=== PATIENT | female | born 1945 | race Caucasian/White ===

== ENCOUNTER 2023-03-27 15:51 | Outpatient (CLI) | payer MEDICARE, SELFPAY | END 2023-03-27 15:52 | disposition home or self-care (01) | LOC: SPT 03-28 10:52 | PROVIDERS: Visit Provider Podiatrist Foot & Ankle Surgery | DX: S99.922A Unspecified injury of left foot, initial encounter (principal); S96.922A Laceration of unspecified muscle and tendon at ankle and foot level, left foot, initial encounter; X58.XXXA Exposure to other specified factors, initial encounter | CPT/HCPCS: 97760; 99205; L4361 ==

== ENCOUNTER → 2023-03-27 15:54 | Outpatient (BNVA) | payer MEDICARE, SELFPAY | PROVIDERS: Visit Provider Podiatrist Foot & Ankle Surgery | DX: S96.122A Laceration of muscle and tendon of long extensor muscle of toe at ankle and foot level, left foot, initial encounter; S96.812A Strain of other specified muscles and tendons at ankle and foot level, left foot, initial encounter; W19.XXXA Unspecified fall, initial encounter | CPT/HCPCS: 73630; 97760; 99205; L4361 ==

== ENCOUNTER 2023-04-02 05:40 | Day surgery (SDC) | payer MEDICARE, SELFPAY ==
[2023-03-30 14:12] VITALS: BMI 26.4
[2023-04-02] VITALS (7 sets, daily range): BP systolic 117–168; BP diastolic 59–91; PULSE 62–74; RESP 12–18; TEMP 36.1–36.6; O2SAT 96–99
--- NOTE | 2023-04-02 06:09 | W.PM.OPSUD ---
Surgery/Procedure H&P Update DATE OF PROCEDURE: April 02, 2023 DATE H&P PERFORMED: 03/27/23 CHANGES TO PREVIOUS DOCUMENTATION: None PREOP DIAGNOSIS: Laceration and tendon rupture left foot PLANNED PROCEDURE: Operation Date: 04/02/23 07:00 Proposed Procedures p ?Secondary closure of wound with extensor tendon repair left foot 89550, [id number], S99.922A,S96.922A(Left) - Royer Whitman DPM s extensor tendon repair left foot(Left) - Royer Whitman DPM
[2023-04-02] MEDS: sodium chloride 0.9% 1,000 ML 30 ML IV (06:22)
[2023-04-02] MEDS: clindamycin 600 MG/50 ML PREMIX 100 MG IV (06:59)
--- NOTE | 2023-04-02 07:51 | PC.NURSE ---
Pt arrived to PACU, awake, A&Ox3, pt denies any pain or nausea at this time. Dressing and post op shoe to left foot C/D/I, left toes p/w/d, cap refill < 3 seconds, able to wiggle toes. FOB elevated.
--- NOTE | 2023-04-02 08:13 | PM.OP ---
Operative Report Date of procedure: April 02, 2023 Pre-op diagnosis: Full-thickness laceration left dorsal foot down to bone measuring 5.5 cm Left second extensor digitorum longus tendon rupture Left third extensor digitorum longus tendon rupture Post-op diagnosis: Same Procedure done: Secondary closure of left dorsal foot wound. CPT code 47807 Left second toe extensor digitorum longus tendon repair. CPT code 42986 Left third toe extensor digitorum longus tendon repair. CPT code 36000 Implants: 4-0 FiberWire 4-0 Vicryl 4-0 nylon Pathology: None Surgeon: Royer Whitman D.P.M. [employer]inder[employer] Assembly Worker: Bri Estimated blood loss: 5 28 IV fluids: 0 Urine output: 0 Complications: None Findings: Complete rupture of left second and third extensor digitorum longus tendons. Complicated full-thickness laceration down to bone left dorsal foot Brief History: Patient examined and evaluated, findings and treatment options discussed with patient at length.? Patient wishing to proceed with direct repair of extensor tendons of left foot that are involved with her injury as well as laceration repair.? I reviewed at length with the patient, the risks, potential complications, benefits, alternatives, expectations, and typical outcomes associated with the surgery. The risks and potential complications were explained in detail, including but not limited to infection, wound dehiscence or soft tissue complications, bleeding and hematoma, chronic edema, neuritis or nerve damage producing numbness or chronic pain, CRPS, failure to relieve pain or worsening pain, thick / painful / unsightly scar, limited motion / stiffness, malposition, delayed union, malunion, or nonunion, fracture, reaction to implants, anesthetic complications, venous thromboembolism, and deformity recurrence.? I discussed the notion of no regrets with the patient as it pertains to complications and outcomes. The patient seemed to understand the nature of the proposed care and required convalescence. They asked appropriate questions, answered to their satisfaction. They are aware no guarantees can be made as to a satisfactory outcome and they understand there may be other possible unforeseen complications or outcomes not listed here that will be treated accordingly if they arise. There were no written or implied guarantees given to the patient. They gave informed consent to proceed.? Procedure: Under mild sedation the patient was brought to the operating room and remained on the gurney in supine position. A timeout was performed. Anesthesia was then administered by the anesthesia service. Local anesthesia was injected by myself consisting of 10 cc of Exparel and 10 cc of 0.5% Marcaine plain in a V-block proximal to the full-thickness laceration left dorsal foot. Well-padded pneumatic tourniquet was applied to the left ankle. The left foot and ankle were exanguinated with an Esmarch bandage and the tourniquet inflated to 250 mmHg. The left second and third toes were drooping downward this was appreciated preoperatively. Attention was directed to the dorsal aspect of the left foot where a full-thickness complex laceration was identified, measured 5.5 cm in a oblique orientation across the dorsum of the left midfoot and forefoot. Laceration had been previously approximated at the emergency department at [facility]. Incomplete healing and partial dehiscence was appreciated without surrounding erythema or purulent drainage. #15 blade was utilized to incise the laceration and blunt dissection carried down to the base of the laceration which was noted to be the dorsal aspect of the second metatarsal. The laceration was irrigated with copious amounts of Staticin solution. Both proximal and distal dissection bluntly was performed to identify the extensor digitorum longus tendon to the second toe both ends were identified, complete rupture was appreciated intraoperatively. There was gapping also appreciated, dorsiflexing the left second toe and dorsiflexing the ankle was able to reapproximate the tendon for a robust repair. The tendon was reapproximated into 2 and utilizing a modified [facility] stitch with 4-0 FiberWire with excellent apposition and strength appreciated. Blunt and sharp dissection was then performed to identify the completely ruptured third toe extensor digitorum longus tendon. The third toe was dorsiflexed and the ankle was dorsiflexed to approximate the tendons for easier identification. This was confirmed at the third toe extensor digitorum longus tendon was properly identified pulling on standing and watching the left third toe dorsiflex. The tendon was repaired end-to-end utilizing 4-0 FiberWire with a modified [facility] suture technique. Excellent robust repair was appreciated. The repair at the second and third extensor digitorum longus tendons resulted in a anatomic reduction of the left second and third toes with resting neutral position appreciated. Dorsiflexing and plantar flexing the left second third toes the tendon glided without crepitus or catching. The incision was irrigated with saline solution. Care was taken to close the wound in a layered fashion. Periosteum and extensor retinaculum was closed with 4-0 Vicryl. Subcutaneous tissue was then closed with 4-0 Vicryl and skin closed with 4-0 nylon. Complete closure was achieved without tension at the skin margins. The left dorsal foot was dressed with Adaptic, sterile 4 x 4's, Kerlix and Patrick wrap. Cam boot was applied to the left lower extremity. Tourniquet was then deflated and a prompt hyperemic response was noted to the distal digits of the left foot. Patient tolerated the procedure and anesthesia well and was transferred to the PACU with vital signs stable and vascular status intact. Following a period of postoperative monitoring she will be discharged home was given at home care and scheduled follow-up. Was also provided my cell phone number to contact with any postoperative questions or concerns.
--- NOTE | 2023-04-02 08:18 | P.ANESASSM_ITS ---
Pre-Anesthetic Assessment Height/Weight: Height 1.65 m Weight 72.121 kg Temp Pulse Resp BP Pulse Ox O2 Del Method 97.2 F L 65 18 144/59 96 Room Air 04/02/23 08:16 04/02/23 08:16 04/02/23 08:16 04/02/23 08:16 04/02/23 08:16 04/02/23 08:16 Preop Diagnosis: Laceration and tendon rupture left foot Operation Date: 04/02/23 07:00 Proposed Procedures p ?Secondary closure of wound with extensor tendon repair left foot 21489, 03360, S99.922A,S96.922A(Left) - Royer Whitman DPM s extensor tendon repair left foot(Left) - Royer Whitman DPM Familial anesthetic complications: none Was Beta Jeannie taken within 24 hours: Yes Was Clonidine taken within 24 hours: N/A Last intake: Intake Last Liquid Date 04/01/23 Last Liquid Time 21:30 Last Solid Date 04/01/23 Last Solid Time 19:30 Social No alcohol and No tobacco Exam alert, oriented x 3, clear to auscultation bilaterally and regular rate & rhythm Airway Submandibular: within normal limits Cervical ROM: within normal limits Mallampati: Class II Dentition: caps CV/HEM Hypertension Metabolic Hyperlipidemia Anesthetic Plan ASA status: 2 Anesthesia: Choice Medications/Allergies Home Medications Medication Instructions Recorded Confirmed Last Taken Type atenolol 100 mg tablet 100 mg PO DAILY 03/27/23 03/30/23 04/01/23 History atorvastatin 20 mg tablet 20 mg PO DAILY 03/27/23 03/30/23 04/01/23 History cam boot to left #1 ea 03/27/23 03/27/23 Unknown Rx montelukast 10 mg tablet 10 mg PO DAILY 03/27/23 03/30/23 04/01/23 History trimethoprim 100 mg tablet 100 tab PO DAILY 03/27/23 03/30/23 04/01/23 History hydrocodone 5 mg-acetaminophen 325 1 tab PO Q4H PRN pain 7 days #28 04/02/23 Unknown Rx mg tablet tabs Allergies Allergy/AdvReac Type Severity Reaction Status Date / Time Sulfa (Sulfonamide Allergy Severe ALGY-Swell Verified 03/30/23 14:09 Antibiotics) Lip/Tongue/Throat adhesive tape Allergy Intermediate ALGY-Redness Verified 03/30/23 14:09 of Skin cefuroxime [From Ceftin] Allergy Intermediate ADR-Halluci Verified 03/30/23 14: 09 nating doxycycline Allergy Intermediate ADR-Halluci Verified 03/30/23 14:09 nating meperidine [From Demerol] Allergy Intermediate ADR-Vomitin Verified 03/30/23 14:09 g Current Medications Generic Name Dose Route Start Last Admin Trade Name Freq PRN Reason Stop Dose Admin Sodium Chloride 1,000 mls @ 30 mls/hr 04/02/23 06:00 04/02/23 06:22 Sodium Chloride 0.9% IV 04/03/23 05:59 30 mls/hr .Q24H HETAL Administration Data Anesthesia Cardiac Studies: No Data to Display
--- NOTE | 2023-04-02 10:25 | ANE.PACU2 ---
Inpatient post-anesthesia follow up: Airway intact: Yes Vital signs: Temperature 97.2 F Pulse Rate 64 Respiratory Rate 18 Blood Pressure 151/80 Pulse Oximetry 99 Oxygen Delivery Me thod Room Air Oxygen Flow Rate Fraction of Inspir ed Oxygen Hydration adequate: Yes Nausea and vomiting: No Pain level: 2 Mental status: Baseline
== END 2023-04-02 08:45 | disposition home or self-care (01) ==
PROVIDERS: PCP Family Medicine; Visit Provider Podiatrist Foot & Ankle Surgery
PROC: (CPT 28208; principal; 2023-04-02 07:00)
PROC: (CPT 28208; 2023-04-02 07:00)
DX: S96.112A Strain of muscle and tendon of long extensor muscle of toe at ankle and foot level, left foot, initial encounter (principal); S91.012A Laceration without foreign body, left ankle, initial encounter; X58.XXXA Exposure to other specified factors, initial encounter; I10 Essential (primary) hypertension; E78.5 Hyperlipidemia, unspecified
CPT/HCPCS: 28208 ×2; C9290; J0330; J2371; J2704; J3490; J7030

== ENCOUNTER → 2023-04-13 12:51 | Outpatient (BNVA) | payer MEDICARE, SELFPAY | PROVIDERS: PCP Family Medicine; Visit Provider Podiatrist Foot & Ankle Surgery | DX: M66.272 Spontaneous rupture of extensor tendons, left ankle and foot (principal); S96.82 Laceration of other specified muscles and tendons at ankle and foot level; X58.XXXS Exposure to other specified factors, sequela | CPT/HCPCS: 99214 ==

== ENCOUNTER 2023-04-18 10:12 | Day surgery (SDC) | payer MEDICARE, SELFPAY ==
[2023-04-18] MEDS: sodium chloride 0.9% 1,000 ML 30 ML IV (10:45)
[2023-04-18 10:48] VITALS: BP 152/89; PULSE 64; RESP 18; TEMP 36.3; O2SAT 97
--- NOTE | 2023-04-18 11:46 | W.PM.OPSUD ---
Surgery/Procedure H&P Update DATE OF PROCEDURE: April 18, 2023 DATE H&P PERFORMED: 04/13/23 CHANGES TO PREVIOUS DOCUMENTATION: none PREOP DIAGNOSIS: Ish tendon rupture left foot PLANNED PROCEDURE: Operation Date: 04/18/23 12:00 Proposed Procedures p Extensor tendon repair left foot 97936, S99.922A,S96.816Y(Left) - Royer Whitman DPM
[2023-04-18] MEDS: clindamycin 600 MG/50 ML PREMIX 100 MG IV (12:00)
--- NOTE | 2023-04-18 13:12 | P.OP_ITS ---
Operative Report Date of procedure: April 18, 2023 Pre-op diagnosis: Preop Diagnosis extensor tendon rupture left foot Post-op diagnosis: Same Procedure done: Extensor tendon repair left foot left second extensor digitorum longus. CPT code 24844 Extensor tendon repair left foot left third extensor digitorum longus. CPT code 13591 Implants: 4-0 FiberWire, 4-0 Vicryl 4-0 nylon Surgeon: Royer Whitman D.P.M. Senior Care Provider: Tiffany Estimated blood loss: 5 52 IV fluids: 0 Urine output: 0 Complications: None Brief History: I reviewed at length with the patient, the risks, potential complications, benefits, alternatives, expectations, and typical outcomes associated with the surgery. The risks and potential complications were explained in detail, including but not limited to infection, wound dehiscence or soft tissue complications, bleeding and hematoma, chronic edema, neuritis or nerve damage producing numbness or chronic pain, CRPS, failure to relieve pain or worsening pain, thick / painful / unsightly scar, limited motion / stiffness, malposition, delayed union, malunion, or nonunion, fracture, reaction to implants, anesthetic complications, venous thromboembolism, and deformity recurrence.? I discussed the notion of no regrets with the patient as it pertains to complications and outcomes. The patient seemed to understand the nature of the proposed care and required convalescence. They asked appropriate questions, answered to their satisfaction. They are aware no guarantees can be made as to a satisfactory outcome and they understand there may be other possible unforeseen complications or outcomes not listed here that will be treated accordingly if they arise. There were no written or implied guarantees given to the patient. They gave informed consent to proceed. Left second and third toes are pointing downward and she is unable to dorsiflex left second or third toe. Informed consent signed by patient and myself. Initial left foot. Patient wishes to proceed. She has been n.p.o. since before midnight. Procedure: Under mild sedation the patient was brought to the operating room and remained on the gurney in supine position. A timeout was performed. Anesthesia was then administered by the anesthesia service. Local anesthesia was injected by myself consisting of 10 cc of 0.5% Marcaine plain across the dorsum of the left foot. Additional anesthesia in a subcutaneous fashion gridlike pattern of Exparel 10 cc was injected at the dorsal proximal left midfoot. A well-padded pneumatic tourniquet was applied to the left ankle. The left lower extremity was scrubbed, prepped and draped utilizing normal aseptic technique. The left foot was exanguinated with an Esmarch bandage and the tourniquet was inflated to 250 mmHg. Attention was directed to the dorsal aspect of the left foot, sutures were removed, previous incision was reutilized and a #15 blade was utilized to incise skin. Dissection was carried down through skin to the layer of subcutaneous tissue down to the level of extensor retinaculum utilizing a combination of sharp and blunt technique. Care was taken to retract and preserve neurovascular and tendinous structures. All all bleeders were ligated and cauterized as necessary. Extensor retinaculum was incised and retracted, the extensor digitorum tendons to the second and third toes were visualized distally with FiberWire intact, approximately FiberWire had pulled through, both ends were gaping apart approximately 2 cm. Redundant FiberWire was excised and passed from the operative field. Fraying of the proximal tendons was debrided. The second and third toes were dorsiflexed, stab incision over the dorsum of the left foot corresponding to the intertarsal was performed to visualize the extensor tendons to the left second and third toes these were identified under direct visualization and then tunneled approximately, once approximated to the proximal and the extensor tendons to the left second and third toes were directly repaired utilizing a [facility] modified tendon repair technique and and with 4-0 FiberWire. Excellent repair was appreciated. The position of the left second and third toes was neutral when resting. This was significantly improved compared to preoperative status where the second and third toes were plantarflexed and drooping downward when resting and unable to be dorsiflexed. Direct repair was successful and appeared to be robust when testing intraoperatively performing range of motion at the left second and third toes. The incisions were irrigated with copious amounts of Staticin solution. The distal incision was closed with 4-0 nylon. The proximal incision was irrigated and retinaculum reapproximated utilizing 4-0 Vicryl subcutaneous tissue reapproximated with 4-0 Vicryl and skin with 4-0 nylon. The incision was dressed with Adaptic, sterile 4 x 4's, Jennifer and Patrick wrap. tourniquet was deflated and a prompt hyperemic response was noted to the distal digits of the left foot. Patient tolerated the procedure and anesthesia well and was transferred to the PACU with vital signs stable and vascular status intact. Following a period of postoperative monitoring she will be discharged home. She is to remain strict nonweightbearing to the left foot. She is to remain in localized with a cam boot to the left lower extremity at all times. She was given at home care instructions and scheduled follow-up to be seen in podiatry clinic next week.
--- NOTE | 2023-04-18 13:14 | ANES.PREANE2 ---
Pre-Anesthetic Assessment Height/Weight: Height 1.63 m Weight 70.307 kg Temp Pulse Resp BP Pulse Ox O2 Del Method 97.3 F L 64 18 152/89 97 Room Air 04/18/23 10:48 04/18/23 10:48 04/18/23 10:48 04/18/23 10:48 04/18/23 10:48 04/18/23 10:48 Preop Diagnosis: Ish tendon rupture left foot Operation Date: 04/18/23 12:00 Proposed Procedures p Extensor tendon repair left foot 24939, S99.922A,S96.819A(Left) - Royer Whitman DPM Familial anesthetic complications: none Was Beta Jeannie taken within 24 hours: Yes Was Clonidine taken within 24 hours: N/A Last intake: Intake Last Liquid Date 04/18/23 Last Liquid Time 04:30 Last Solid Date 04/17/23 Last Solid Time 17:00 Social No alcohol and No tobacco Exam alert, oriented x 3, clear to auscultation bilaterally and regular rate & rhythm Airway Submandibular: within normal limits Cervical ROM: within normal limits Mallampati: Class II Dentition: caps CV/HEM Hypertension Metabolic Hyperlipidemia Anesthetic Plan ASA status: 2 Anesthesia: Choice Medications/Allergies Home Medications Medication Instructions Recorded Confirmed Last Taken Type atenolol 100 mg tablet 100 mg PO DAILY 03/27/23 04/17/23 04/17/23 History atorvastatin 20 mg tablet 20 mg PO DAILY 03/27/23 04/17/23 04/17/23 History cam boot to left #1 ea 03/27/23 04/13/23 Unknown Rx montelukast 10 mg tablet 10 mg PO DAILY 03/27/23 04/17/23 04/17/23 History trimethoprim 100 mg tablet 100 tab PO DAILY 03/27/23 04/17/23 04/17/23 History Bedside commode #1 ea 04/16/23 Unknown Rx Wheelchair with foot rests #1 ea 04/16/23 Unknown Rx Allergies Allergy/AdvReac Type Severity Reaction Status Date / Time Sulfa (Sulfonamide Allergy Severe ALGY-Swell Verified 04/17/23 13:50 Antibiotics) Lip/Tongue/Throat adhesive tape Allergy Intermediate ALGY-Redness Verified 04/17/23 13:50 of Skin cefuroxime [From Ceftin] Allergy Intermediate ADR-Halluci Verified 04/17/23 13:50 nating doxycycline Allergy Intermediate ADR-Halluci Verified 04/17/23 13:50 nating meperidine [From Demerol] Allergy Intermediate ADR-Vomitin Verified 04/17/23 13:50 g Current Medications Generic Name Dose Route Start Last Admin Trade Name Freq PRN Reason Stop Dose Admin Sodium Chloride 1,000 mls @ 30 mls/hr 04/18/23 10:30 04/18/23 10:45 Sodium Chloride 0.9% IV 04/19/23 10:29 30 mls/hr .Q24H HETAL Administration Data Anesthesia Cardiac Studies: No Data to Display
[2023-04-18 13:15] VITALS: BP 105/60; PULSE 63; RESP 16; TEMP 36.1; O2SAT 100
[2023-04-18] MEDS: ondansetron 2 mg/ML SDV 2 mL 4 MG IVP (13:19)
[2023-04-18 13:20] VITALS: BP 113/60; PULSE 63; RESP 16; O2SAT 95
[2023-04-18 13:25] VITALS: BP 121/67; PULSE 63; RESP 16; O2SAT 97
[2023-04-18 13:30] VITALS: BP 138/66; PULSE 60; RESP 16; O2SAT 96
[2023-04-18 13:40] VITALS: BP 127/76; PULSE 58; RESP 17; TEMP 36.1; O2SAT 98
--- NOTE | 2023-04-18 14:53 | ANE.PACU2 ---
Inpatient post-anesthesia follow up: Airway intact: Yes Vital signs: Temperature 97 F Pulse Rate 58 Respiratory Rate 17 Blood Pressure 127/76 Pulse Oximetry 98 Oxygen Delivery Me thod Room Air Oxygen Flow Rate 6 Fraction of Inspir ed Oxygen Hydration adequate: Yes Nausea and vomiting: No Pain level: 2 Mental status: Baseline
== END 2023-04-18 14:38 | disposition home or self-care (01) ==
PROVIDERS: PCP Family Medicine; Visit Provider Podiatrist Foot & Ankle Surgery
PROC: (CPT 28208; principal; 2023-04-18 12:00)
DX: S96.112A Strain of muscle and tendon of long extensor muscle of toe at ankle and foot level, left foot, initial encounter (principal); X58.XXXA Exposure to other specified factors, initial encounter; I10 Essential (primary) hypertension; E78.5 Hyperlipidemia, unspecified
CPT/HCPCS: 28208 ×2; 97760; C9290; J2371; J2405; J2704; J3010; J3490; J7030

== ENCOUNTER → 2023-05-03 13:36 | Outpatient (BNVA) | payer MEDICARE, SELFPAY | PROVIDERS: PCP Family Medicine; Visit Provider Podiatrist Foot & Ankle Surgery | DX: S96.82 Laceration of other specified muscles and tendons at ankle and foot level (principal); M66.272 Spontaneous rupture of extensor tendons, left ankle and foot; Z98.890 Other specified postprocedural states; X58.XXXS Exposure to other specified factors, sequela | CPT/HCPCS: 99024 ==

== ENCOUNTER → 2023-05-17 13:13 | Outpatient (BNVA) | payer MEDICARE, SELFPAY | PROVIDERS: PCP Family Medicine; Visit Provider Podiatrist Foot & Ankle Surgery | DX: S96.82 Laceration of other specified muscles and tendons at ankle and foot level; M66.272 Spontaneous rupture of extensor tendons, left ankle and foot; Z98.890 Other specified postprocedural states; X58.XXXS Exposure to other specified factors, sequela | CPT/HCPCS: 99024 ==

== ENCOUNTER → 2023-06-05 08:02 | Outpatient (BNVA) | payer MEDICARE, SELFPAY | PROVIDERS: PCP Family Medicine; Visit Provider Podiatrist Foot & Ankle Surgery | DX: S96.82 Laceration of other specified muscles and tendons at ankle and foot level (principal); M66.272 Spontaneous rupture of extensor tendons, left ankle and foot; Z98.890 Other specified postprocedural states; X58.XXXS Exposure to other specified factors, sequela | CPT/HCPCS: 99024 ==

== ENCOUNTER → 2023-07-03 10:10 | Outpatient (BNVA) | payer MEDICARE, SELFPAY | PROVIDERS: PCP Family Medicine; Visit Provider Podiatrist Foot & Ankle Surgery | DX: Z98.890 Other specified postprocedural states (principal); S96.82 Laceration of other specified muscles and tendons at ankle and foot level; M66.272 Spontaneous rupture of extensor tendons, left ankle and foot; X58.XXXS Exposure to other specified factors, sequela | CPT/HCPCS: 99024 ==

== ENCOUNTER → 2023-09-05 10:33 | Outpatient (BNVA) | payer MEDICARE, SELFPAY | PROVIDERS: PCP Family Medicine; Visit Provider Podiatrist Foot & Ankle Surgery | DX: Z98.890 Other specified postprocedural states (principal); S96.82 Laceration of other specified muscles and tendons at ankle and foot level; M66.272 Spontaneous rupture of extensor tendons, left ankle and foot; X58.XXXS Exposure to other specified factors, sequela | CPT/HCPCS: 99024 ==